=== PATIENT | male | born 1950 | race Caucasian/White ===

== ENCOUNTER 2017-11-06 07:58 | Outpatient (CLI) | payer MEDICARE, BC | END 2017-11-06 07:59 | disposition home or self-care (01) | LOC: LABBT 07:58 | PROVIDERS: ATTEND Neurological Surgery | DX: Z01.818 Encounter for other preprocedural examination (principal); M54.16 Radiculopathy, lumbar region ==

== ENCOUNTER 2017-11-13 06:49 | Day surgery (SDC) | payer MEDICARE, BC ==
[2017-11-06 08:34] VITALS: BMI 41.6
--- NOTE | 2017-11-12 22:15 | HP ---
HISTORY OF PRESENT ILLNESS: Mr. Fatima is a pleasant 67-year-old man, who is known to us for previous left L3 surgery x2. He returns today for overlapping right lower extremity L3 and L4. Symptoms x1 month. His pain is severe and has not been amenable to any prescribed or mhsi-yng-wgyphym medication s. They did a CT scan at [facility] after an ER visit that reveals a large osteophyte projection L3-L4 into the foramen and lateral recess, so it matches pain quite well. He is trying to reach out 2 sets of epidural steroid injections with Dr. Kern's office, but has been unsuccessful in doing so. He does have extensive cardiac and now pulmonary history that could potentially preclude any surgery going forward. PAST MEDICAL HISTORY: Significant for aortic valve replacement, coronary arterial disease, hypertens ion, COPD, hyperlipidemia, and diabetes. MEDICATIONS: Metformin, Crestor, clopidogrel, Symbicort, amlodipine, valsartan, methocarbamol, [place] , and aspirin. ALLERGIES: PENICILLIN, FENTANYL and CITRUS. PAST SURGICAL HISTORY: Lumbar laminectomy x2, aortic valve replacement. PHYSICAL EXAMINATION: The patient is in a wheelchair at present and I do not assess his gait. Lower extremity motor exam is normal. ASSESSMENT: Lumbar radiculopathy. PLAN: Dr. Coffey met with the patient, reviewed imaging and advocated for reoperation of right L3-L4 facetectomy and foraminotomy. He explained to the patient the risks, benefits, and alternatives of t he procedure. The patient expressed understanding and would like to move forward with surgery as dis cussed. I do believe the patient is mentally competent and capable of making medical decisions for h imself. We will move forward with surgery as planned. This is Tristan Curtis PA-C, dictating for Dr. Coffey.
[2017-11-13] MEDS ORDERED: Thrombin 5000 UNITS/5 ML VIAL ONE (06:57)
[2017-11-13] MEDS ORDERED: Bupivacaine/Epinephrine 0.25% 30 ML VIAL ONE (06:57)
[2017-11-13] MEDS ORDERED: Bupivacaine HCl 0.5%/Epinephrine 1:200,000/PF 30 ml Vial ONE (07:13)
[2017-11-13] MEDS ORDERED: Fentanyl 100 MCG/2 ML VIAL ONE (08:17)
[2017-11-13] MEDS ORDERED: Midazolam HCl 2 mg/2 ml Vial ONE ×2 (08:17→10:23)
[2017-11-13] MEDS ORDERED: Gentamicin 80 MG/2 ML VIAL ONE (09:12)
[2017-11-13] MEDS ORDERED: Clindamycin/D5W 900 mg/50 ml Premix Bag ONE (09:12)
[2017-11-13] MEDS ORDERED: PROPOFOL 0 ML ONE (10:23)
[2017-11-13] MEDS ORDERED: Sodium Chloride For Inhalation 0.9% 3 ML NEB ONE (10:25)
[2017-11-13] MEDS ORDERED: Morphine 4 MG/ML VIAL ONE ×2 (10:36→11:15)
--- NOTE | 2017-11-13 10:56 | OP ---
DATE OF PROCEDURE: 11/13/2017 SURGEON: Hever Coffey M.D. [employer]MAN: None. INDICATION: Pain. DIAGNOSIS: L3 radiculopathy. PROCEDURE: Reoperation right L3-L4 hemilaminectomy, medial facetectomy, foraminotomy. ANESTHESIA: General. TECHNIQUE: The patient was brought into the operating room and placed under general anesthesia. He was flipped from a supine to a prone position on the operating room table. The superior aspect of hi s prior incision was identified and prepped and draped in usual sterile fashion. Following an approp riate operative pause, the incision was created. The soft tissues were swept right of midline. A se lf-retaining retractor was placed in the wound for optimal exposure and a C-arm image obtained to con firm the appropriate location. High-speed cutting drill bit as well as 2, 3 and 4-mm Kerrisons were then used to remove the lamina along the L3-L4 interface. At least a half two-thirds of the facet marybeth int on that side was also removed. There were large bony and soft tissue components within the later al recess and in the proximal aspect of the foramen. These were carefully removed. There was an adh esive degree of scar into the thecal sac on the underside which did result in an unintentional duroto my. This could not be repaired primarily and therefore Gelfoam pledgets were placed. It did not tyrel ear to leak. After completely decompressing the segment, the wound was then closed in a watertight f ashion. A pressure dressing was then applied at the end.
[2017-11-13] MEDS ORDERED: Cyclobenzaprine 10 MG TAB ONE (11:25)
[2017-11-13] MEDS ORDERED: Glycopyrrolate 0.2 MG/ML 5 ML SYRINGE ONE (12:27)
[2017-11-13] MEDS ORDERED: Dexamethasone 20 MG/5 ML VIAL ONE (12:27)
[2017-11-13] MEDS ORDERED: PROPOFOL 200 MG/20 ML VIAL ONE (12:27)
[2017-11-13] MEDS ORDERED: Ondansetron HCl/PF 4 MG/2 ML Vial ONE (12:27)
[2017-11-13] MEDS ORDERED: HYDROcodone/Acetaminophen 5/325 mg Tablet ONE (12:47)
--- NOTE | 2017-11-13 20:33 | EKG ---
Test Reason : PREOP Blood Pressure : / mmHG Vent. 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 Emani RINCON MD
== END 2017-11-13 16:02 | disposition home or self-care (01) ==
LOC: SDC 06:49
PROVIDERS: ATTEND Neurological Surgery
PROC: 01NB0ZZ Release Lumbar Nerve, Open Approach (ICD-10-PCS; principal; 2017-11-13)
DX: M54.16 Radiculopathy, lumbar region (principal); Z88.0 Allergy status to penicillin; Z88.6 Allergy status to analgesic agent; Z88.8 Allergy status to other drugs, medicaments and biological substances; Z91.018 Allergy to other foods
CPT/HCPCS: 76001; 93005; 93010; 96374; J0670; J1580; J2250; J2270; J2704; J3010; J3370; J3490

== ENCOUNTER 2018-12-22 06:59 | Day surgery (SDC) | payer MEDICARE, BC ==
[2018-12-22 07:57] VITALS: BP 117/68; TEMP 98.2
[2018-12-22 08:03] VITALS: BMI 40.0
--- NOTE | 2018-12-22 09:16 | RAD ---
Exam: CERVICAL MYELOGRAM: HISTORY: Cervical spondylosis with myelopathy. Exposure: 1 minute. 1704.4 mGy*cm^2. FINDINGS: Initial 2 view public information relations manager cervical spine radiograph demonstrates degenerative change with osteophyte forma tion at C4-C5 and C5-C6. On the AP projection, there is right greater than left facet hypertrophy. Planning Engineer lumbar spine radiograph demonstrates bilateral transpedicular screws at L4, L5, and S1. No ashlee hardware lucency. L4-L5 and L5-S1 disc prosthesis. Lumbar spine vertebral body height is maintained. No fracture. There are 5 lumbar type vertebral bodi es. Laminectomy defect at L4. Successful lumbar puncture for cervical myelogram. A total of 9 mL of Isovue-M 300 contrast was admin istered intrathecally. TECHNIQUE: Consent obtained to perform a lumbar puncture for intrathecal contrast administration. Patient's back was evaluated. The L2-L3 level was deemed appropriate. Skin was prepped and draped in a sterile fashion. 1% lidocaine, buffered with sodium bicarbonate was administered for anesthesia. Under fluoro scopic guidance, a 22-gauge spinal needle was advanced into the CSF space. There is prompt flow of clear CSF to the hub of the needle. Total of 9 mL of Isovue-M 300 contrast was administered intrathec ally. Patient tolerated the procedure well. No immediate or postprocedure complications. IMPRESSION: Successful lumbar puncture for cervical myelogram. Transcribed Date/Time: 12/22/2018 9:40 AM
--- NOTE | 2018-12-22 11:52 | CT ---
Exam: Post myelogram cervical spine CT HISTORY:Cervical spondylosis. Myelopathy. COMPARISON: None Technique: Post myelogram cervical spine CT is performed in the axial plane. FINDINGS: No craniocervical dissociation. Appropriate alignment of the lateral masses of C1 and C2. Intact odon toid process. Cervical spine vertebral body height is maintained. No fracture. Straightening of normal cervical lordosis may be positional. C2-C3: Central disc protrusion. No significant central canal stenosis. Bilaterally, neural foramina a re patent. C3-C4: Central disc osteophyte complex. Mass effect and deformity the midline cord. Mild central kalpesh l stenosis. Mild right foraminal narrowing due to uncovertebral and facet hypertrophy. Left foramen is patent. C4-C5:Central disc osteophyte complex effaces the subarachnoid space. Mild deformity of the cervical cord. Mild central canal stenosis. Bilaterally, neural foramina are patent. C5-C6: Central disc protrusion abuts the thecal sac. Ventral subarachnoid space is effaced. Mass effe ct upon the midline cord. No significant central canal stenosis. Neural foramina are patent bilaterally. C6-C7:Central disc protrusion causes mass effect and deformity of the ventral cord. Mild to moderate central canal stenosis. Bilaterally, neural foramina are patent. Mild bilateral facet hypertrophy. C7-T1: Central disc protrusion abuts the thecal sac. Ventral subarachnoid space is effaced. Minimal d eformity the cervical cord. Mild central canal stenosis. Neural foramina are patent. IMPRESSION: 1.Straightening of normal cervical lordosis which is presumed to be positional. 2. Multilevel degenerative disc disease. There is mass effect upon the cervical cord at multiple leve ls without severe cord deformity. Mild central canal stenosis at multiple levels. Transcribed Date/Time: 12/22/2018 1:19 PM
[2018-12-22] MEDS ORDERED: Iopamidol-M 300 61% 15 ML VIAL ONE (11:58)
== END 2018-12-22 09:55 | disposition home or self-care (01) ==
LOC: RAD 06:59
PROVIDERS: ATTEND Neurological Surgery
PROC: B01B1ZZ Fluoroscopy of Spinal Cord using Low Osmolar Contrast (ICD-10-PCS; principal; 2018-12-22)
DX: M47.12 Other spondylosis with myelopathy, cervical region (principal); M48.02 Spinal stenosis, cervical region; M48.03 Spinal stenosis, cervicothoracic region; M50.01 Cervical disc disorder with myelopathy, high cervical region; E11.40 Type 2 diabetes mellitus with diabetic neuropathy, unspecified; I10 Essential (primary) hypertension; K21.9 Gastro-esophageal reflux disease without esophagitis; I25.2 Old myocardial infarction; F41.9 Anxiety disorder, unspecified; E78.5 Hyperlipidemia, unspecified; Z95.5 Presence of coronary angioplasty implant and graft; Z99.89 Dependence on other enabling machines and devices; Z98.84 Bariatric surgery status; Z88.0 Allergy status to penicillin; Z88.6 Allergy status to analgesic agent; Z91.018 Allergy to other foods; Z88.5 Allergy status to narcotic agent; Z79.84 Long term (current) use of oral hypoglycemic drugs; Z79.82 Long term (current) use of aspirin; Z79.899 Other long term (current) drug therapy
CPT/HCPCS: 62302; 72126; Q9967